=== PATIENT | male | born 1995 | race Caucasian/White ===

== ENCOUNTER 2018-09-09 16:06 | Emergency (ER) | payer OTHER ==
[~2018-09-09] VITALS: Ht 182.9 cm; Wt 81.2 kg
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
--- NOTE | 2018-09-09 16:48 | RAD ---
EXAM: 1. WRIST 3V RIGHT, 2. HAND RIGHT 3V. HISTORY: Right hand/wrist pain after injury. COMPARISON: None. FINDINGS: There is a transverse fracture of the fourth metacarpal diaphysis with 30 degrees volar and radial angulation of the distal fracture fragment. There is also a comminuted, intra-articular fracture of the base of the fifth metacarpal. There is 7 mm dorsal subluxation of the fifth carpometacarpal joint. There are no fractures or malalignment within the wrist. IMPRESSION: 1. Comminuted intra-articular fracture of the fifth metacarpal base with 7 mm dorsal subluxation of the fifth carpometacarpal joint. 2. 30 degrees volar and radial angulation at a fourth metacarpal diaphyseal fracture. Electronically signed by: Mona Jimenez MD (09/09/2018 4:45 PM) [facility]
[2018-09-09] MEDS ORDERED: KETOROLAC 15 MG/ML VIAL. IM ONE (17:00)
[2018-09-09] MEDS ORDERED: TRAM50TA PO (17:43)
[2018-09-09 17:47] VITALS: BP 125/81
== END 2018-09-09 17:47 | disposition home or self-care (01) ==
LOC: ER 16:06
DX: S62.316A Displaced fracture of base of fifth metacarpal bone, right hand, initial encounter for closed fracture (principal); F17.210 Nicotine dependence, cigarettes, uncomplicated; F10.20 Alcohol dependence, uncomplicated; Y90.9 Presence of alcohol in blood, level not specified; W22.8XXA Striking against or struck by other objects, initial encounter; Y93.89 Activity, other specified; Y92.89 Other specified places as the place of occurrence of the external cause; Y99.8 Other external cause status
CPT/HCPCS: 29125; 73110; 73130; 96372; 99284; J1885

== ENCOUNTER 2019-02-18 18:19 | Emergency (ER) | payer OTHER ==
[~2019-02-18] VITALS: Ht 182.9 cm; Wt 83.9 kg
[~2019-02-18 18:19] MED LIST: TRAM50TA PO
[2019-02-18 18:30] VITALS: BP 128/79
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
[2019-02-18] MEDS ORDERED: MELO7.5T29 PO (19:26)
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
== END 2019-02-18 19:32 | disposition home or self-care (01) ==
LOC: ER 18:19
DX: S69.91XA Unspecified injury of right wrist, hand and finger(s), initial encounter (principal); Z77.21 Contact with and (suspected) exposure to potentially hazardous body fluids; F17.210 Nicotine dependence, cigarettes, uncomplicated; F10.20 Alcohol dependence, uncomplicated; Y90.9 Presence of alcohol in blood, level not specified; X50.9XXA Other and unspecified overexertion or strenuous movements or postures, initial encounter; Y93.89 Activity, other specified; Y92.89 Other specified places as the place of occurrence of the external cause; Y99.8 Other external cause status
CPT/HCPCS: 29125; 73130; 86703; 86705; 86709; 86803; 87340; 99285-25

== ENCOUNTER 2019-06-20 11:19 | Emergency (ER) | payer OTHER ==
[~2019-06-20] VITALS: Ht 182.9 cm; Wt 87.4 kg
[~2019-06-20 11:19] MED LIST changes: +MELO7.5T29 PO
[2019-06-20 11:28] VITALS: BP 125/74
[2019-06-20] MEDS ORDERED: NYST15CR2 TP (11:46)
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
== END 2019-06-20 11:50 | disposition home or self-care (01) ==
LOC: ER 11:19
DX: L30.9 Dermatitis, unspecified (principal); F17.210 Nicotine dependence, cigarettes, uncomplicated
CPT/HCPCS: 99283

== ENCOUNTER 2019-10-22 14:44 | Emergency (ER) | payer OTHER ==
[~2019-10-22] VITALS: Ht 182.9 cm; Wt 87.4 kg
[~2019-10-22 14:44] MED LIST changes: +NYST15CR2 TP
[2019-10-22 15:06] VITALS: BP 139/88
[2019-10-22] MEDS ORDERED: DEXAMETHASONE 4 MG TABLET PO ONE (15:30)
[2019-10-22] MEDS ORDERED: LIDO700A21 TP (15:30)
[2019-10-22] MEDS ORDERED: PRED20TA PO (15:30)
[2019-10-22] MEDS ORDERED: ORPH-16 PO (15:30)
[2019-10-22] MEDS ORDERED: KETOROLAC 30 MG/ML VIAL. IM ONE (15:30)
--- NOTE | 2019-10-22 15:31 | PHYS DOC ---
Past History Past Medical History: No Pertinent History Past Surgical History: No Surgical History Smoking: Cigarettes Additional Smoking Information: Dips Alcohol Use: Occasionally Drug Use: None General Adult EDM: Chief Complaint: BACK PAIN OR INJURY HPI: HPI: Patient is a [age] year old [sex] who presents with [] Review of Systems: Review of Systems: Constitutional: Denies fever or chills Eyes: Denies change in visual acuity HENT: Denies nasal congestion or sore throat Respiratory: Denies cough or shortness of breath Cardiovascular: Denies chest pain or edema GI: Denies abdominal pain, nausea, vomiting, bloody stools or diarrhea : Denies dysuria Musculoskeletal: Denies back pain or joint pain Integument: Denies rash Neurologic: Denies headache, focal weakness or sensory changes Endocrine: Denies polyuria or polydipsia Lymphatic: Denies swollen glands Psychiatric: Denies depression or anxiety Heart Score: Risk Factors: Risk Factors: DM, Current or recent (<one month) smoker, HTN, HLP, family history of CAD, obesity. Risk Scores: Score 0 - 3: 2.5% MACE over next 6 weeks - Discharge Home Score 4 - 6: 20.3% MACE over next 6 weeks - Admit for Clinical Observation Score 7 - 10: 72.7% MACE over next 6 weeks - Early Invasive Strategies Allergies: Allergies: Allergies Coded Allergies Type Severity Reaction Last Updated Verified No Known Drug Allergies 09/09/18 No Physical Exam: PE: Constitutional: Well developed, well nourished, no acute distress, non-toxic appearance. [] HENT: Normocephalic, atraumatic, bilateral external ears normal, oropharynx moist, no oral exudates, nose normal. [] Eyes: PERRLA, EOMI, conjunctiva normal, no discharge. [] Neck: Normal range of motion, no tenderness, supple, no stridor. [] Cardiovascular:Heart rate regular rhythm, no murmur [] Lungs & Thorax: Bilateral breath sounds clear to auscultation [] Abdomen: Bowel sounds normal, soft, no tenderness, no masses, no pulsatile marysol s. [] Skin: Warm, dry, no erythema, no rash. [] Back: No tenderness, no CVA tenderness. [] Extremities: No tenderness, no cyanosis, no clubbing, ROM intact, no edema. [] Neurologic: Alert and oriented X 3, normal motor function, normal sensory function, no focal deficits noted. [] Psychologic: Affect normal, judgement normal, mood normal. [] Current Patient Data: Vital Signs: Vital Signs Date Time Temp Pulse Resp B/P (MAP) Pulse Ox O2 Delivery O2 Flow Rate FiO2 10/22/19 15:06 98.0 71 14 139/88 (105) 98 Room Air EKG: EKG: [] Radiology/Procedures: Radiology/Procedures: [] Course & Med Decision Making: Course & Med Decision Making Pertinent Labs and Imaging studies reviewed. (See chart for details) [] Dragon Disclaimer: DragDasher Disclaimer: This electronic medical record was generated, in whole or in part, using a voice recognition dictation system. Departure Departure: Impression: Primary Impression: Back pain Qualified Codes: M54.42 - Lumbago with sciatica, left side Additional Impression: Sciatica Qualified Codes: M54.32 - Sciatica, left side Disposition: HOME/RESIDENCE PRIOR TO ADM Condition: STABLE Referrals: ELIZABETH SHAW PA-C (PCP) Patient Instructions: Back Pain, Adult, [id number], Sciatica, [id number] Additional Instructions: ICE area 20 min on then leave off for next 20 min. Repeat several times daily for next few days. May also use over the counter Ibuprofen 600mg (3 over the counter tabs) three times daily and Tylenol 325-500mg four times daily as needed for pain. Call Dr. Richard Guaman (pain management) Address: [address] [place] [address] Scripts Lidocaine (Lidocaine PATCH ) 1 Each Adh..patch 1 EACH TP DAILY for FOR LOCAL PAIN, #10 PATCH REMOVE AFTER 12 HOURS BEFORE APPLICATION OF NEW PATCH Prov: MOIZ ARZOLA DO 10/22/19 Orphenadrine Citrate (ORPHENADRINE CITRATE) 100 Mg Tablet.er 1 TAB PO BID PRN for MUSCLE PAIN, #14 TAB 0 Refills Prov: MOIZ ARZOLA DO 10/22/19 Prednisone (PREDNISONE) 20 Mg Tablet 2 TAB PO DAILY for Back pain, #8 TAB Start this prescription tomorrow, Wednesday10/23/19 Prov: MOIZ ARZOLA DO 10/22/19 Justification of Admission: Justification of Admission: Justification of Admission Dx: N/A MOIZ ARZOLA DO Oct 22, 2019 15:31
[2019-10-22] MEDS ORDERED: LIDOCAINE (700MG/PATCH) PATCH. TD ONE (15:33)
== END 2019-10-22 15:46 | disposition home or self-care (01) ==
LOC: ER 14:44
DX: M54.42 Lumbago with sciatica, left side (principal); M25.562 Pain in left knee; F17.210 Nicotine dependence, cigarettes, uncomplicated
CPT/HCPCS: 96372; 99283; J1885; J8540

== ENCOUNTER 2020-04-11 01:10 | Emergency (ER) | payer OTHER ==
[~2020-04-11] VITALS: Ht 182.9 cm; Wt 95.0 kg
[~2020-04-11 01:10] MED LIST changes: +LIDO700A21 TP; +ORPH-16 PO; +PRED20TA PO
--- NOTE | 2020-04-11 01:16 | PHYS DOC ---
Past History Past Medical History: No Pertinent History Past Surgical History: No Surgical History Smoking: Chew Alcohol Use: Occasionally Drug Use: None General Adult HPI: HPI: ".. I got a really sore throat.. and I vomited... and now I am running a fever again... may be it is strep throat.. I do get that... I did get over a bad case of COVID in Jan... I feel like it... ... Maybe I got it again.. 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 Patient denies any recent travel received deployments. Has been exposed to inmates who have Covid at the detention. Denies any history immunosuppression. Patient does frequently get strep throat infections this time a year. Patient denies any intake of bad food. Review of Systems: Review of Systems: Constitutional: Complains of fever or chills Eyes: Denies change in visual acuity HENT: Complains of sore throat Respiratory: Complains of nonproductive cough Cardiovascular: Denies chest pain or edema GI: Complains of abdominal pain, nausea, vomiting,. Denies bloody stools or diarrhea : Denies dysuria Musculoskeletal: Complains of generalized myalgia and arthralgia Integument: Denies rash Neurologic: Denies headache, focal weakness or sensory changes Endocrine: Denies polyuria or polydipsia Lymphatic: Denies swollen glands Psychiatric: Denies depression or anxiety Family History: Family History: Noncontributory to presentation Current Medications: Current Meds: See nursing for home meds Allergies: Allergies: Allergies Coded Allergies Type Severity Reaction Last Updated Verified No Known Drug Allergies 09/09/18 No Physical Exam: PE: Constitutional: Well developed, well nourished, moderate acute distress, non- toxic appearance. [] HENT: Normocephalic, atraumatic, bilateral external ears normal, oropharynx moist, postnasal drainage, erythema pharynx, no oral exudates, nose swollen turbinates and clear rhinorrhea Eyes: PERRLA, EOMI, conjunctiva normal, no discharge. [] Neck: Normal range of motion, no tenderness, supple, no stridor. Mild adenopathy anterior chain of her neck. Cardiovascular: Tachycardia heart rate regular rhythm, no murmur [] monitor shows a sinus rhythm Lungs & Thorax: Bilateral breath sounds equal apex with few scattered wheezes on auscultation [] Abdomen: Bowel sounds hyperactive, soft, gastric tenderness, no masses, no pulsatile masses. [] Rebound to right upper quadrant and epigastric area. Skin: Warm, dry, no erythema, no rash. [] Back: Generalized myalgia and arthralgia Extremities: No tenderness, no cyanosis, no clubbing, ROM intact, no edema. No cording appreciated. No psoas sign. Neurologic: Alert and oriented X 3, normal motor function, normal sensory function, no focal deficits noted. [] Psychologic: Affect anxious, judgement normal, mood normal. [] EKG: EKG: My interpretation EKG shows a sinus rhythm at 86 bpm. No findings acute morphology. [] Radiology/Procedures: Radiology/Procedures: [] Heart Score: Risk Factors: Risk Factors: DM, Current or recent (<one month) smoker, HTN, HLP, family history of CAD, obesity. Risk Scores: Score 0 - 3: 2.5% MACE over next 6 weeks - Discharge Home Score 4 - 6: 20.3% MACE over next 6 weeks - Admit for Clinical Observation Score 7 - 10: 72.7% MACE over next 6 weeks - Early Invasive Strategies Course & Med Decision Making: Course & Med Decision Making Pertinent Labs and Imaging studies reviewed. (See chart for details) Patient gargle Listerine 4 times a day. Take Tylenol and ibuprofen for pain. Patient may take Zofran for active nausea and vomiting. Push clear fluids. For marked discomfort may take Vicoprofen. Would self isolate. Consider getting rapid Covid testing at [facility] since it is available there. Return if any c oncerns. Would for the next 24 hours to maintain a clear fluid diet with no solids or milk products to allow bowel rest. There is always a possibility of reinfection with Covid. Impression: 1. Fever 2. Pharyngitis 3. Covid infection- 01/22 4. Gastroenteritis [] Dragon Disclaimer: Dragon Disclaimer: This electronic medical record was generated, in whole or in part, using a voice recognition dictation system. Departure Departure: Referrals: PCP,UNKNOWN (PCP) Scripts Ibuprofen (IBUPROFEN) 400 Mg Tablet 400 MG PO QIDPRN PRN for fever, #120 TAB Prov: CHRIS JONES MD 04/11/20 Acetaminophen (ACETAMINOPHEN) 500 Mg Tablet 1000 MG PO QIDPRN for fever or pain for 90 Days, TAB Prov: CHRIS JONES MD 04/11/20 Ondansetron Hcl (ZOFRAN) 4 Mg Tablet 8 MG PO QIDPRN PRN for NAUSEA/VOMITING, #30 TAB Prov: CHRIS JONES MD 04/11/20 Hydrocodone/Ibuprofen (HYDROCODONE-IBUPROFEN 7.5-200 ) 1 Each Tablet 1 TAB PO PRN Q6HRS PRN for PAIN, #30 TAB 0 Refills Prov: CHRIS JONES MD 04/11/20 Dragon Disclaimer This chart was dictated in whole or in part using Voice Recognition software in a busy, high-work load, and often noisy Emergency Department environment. It may contain unintended and wholly unrecognized errors or omissions. Dragon Disclaimer This chart was dictated in whole or in part using Voice Recognition software in a busy, high-work load, and often noisy Emergency Department environment. It may contain unintended and wholly unrecognized errors or omissions. CHRIS JONES MD Apr 11, 2020 01:16
[2020-04-11] MEDS ORDERED: KETOROLAC 30 MG/ML VIAL. IVP ONE ×3 (01:30→02:00)
[2020-04-11] MEDS ORDERED: ONDANSETRON PF 4 MG/2 ML VIAL. IVP ONE (02:00)
[2020-04-11] MEDS ORDERED: IV RINGERS SOLUTION,LACTATED 1,000 ML IV SCH (02:00)
[2020-04-11] MEDS ORDERED: FAMOTIDINE 20 MG/2 ML VIAL IVP ONE (02:00)
[2020-04-11 02:48] LABS: BASO % 0 % (0-3); EOS # 0.2 x10^3/uL (0.0-0.7); EOS % 1 % (0-3); HEMATOCRIT 46.2 % (39.0-53.0); HEMOGLOBIN 15.5 g/dL (13.0-17.5); LYMPH % 7 % (24-48); MEAN CORPUSCULAR HEMOGLOBIN 29 pg (25-35); MEAN CORPUSCULAR HGB CONC 34 g/dL (31-37); MEAN CORPUSCULAR VOLUME 87 fL (79-100); MONO % 7 % (0-9); NEUT # 12.8 x10^3uL (1.8-7.7); NEUT % 85 % (31-73); PLATELET COUNT 201 x10^3/uL (140-400); RED BLOOD COUNT 5.31 x10^6/uL (4.30-5.70); RED CELL DISTRIBUTION WIDTH 12.4 % (11.5-14.5); WHITE BLOOD COUNT 15.1 x10^3/uL (4.0-11.0)
[2020-04-11 03:04] LABS: CALCIUM 8.9 mg/dL (8.5-10.1); CREATININE 0.9 mg/dL (0.7-1.3); POTASSIUM 3.8 mmol/L (3.5-5.1)
[2020-04-11 03:11] LABS: % BANDS 3 % (0-9); % EOS 2 % (0-5); % LYMPHS 8 % (24-48); % MONOS 3 % (0-10); % SEGS 84 % (35-66); PLT ESTIMATE ADEQUATE (ADEQUATE)
[2020-04-11 03:18] LABS: ALBUMIN 3.9 g/dL (3.4-5.0); DIRECT BILIRUBIN 0.2 mg/dL (0.0-0.2); TOTAL PROTEIN 7.4 g/dL (6.4-8.2)
[2020-04-11 03:24] LABS: INFLUENZA A PATIENT NEGATIVE (NEGATIVE); INFLUENZA B PATIENT NEGATIVE (NEGATIVE)
[2020-04-11] MEDS ORDERED: ONDA4TAB7 PO (04:08)
[2020-04-11] MEDS ORDERED: HYDR-1179 PO (04:08)
[2020-04-11] MEDS ORDERED: ACET500T68 PO (04:08)
[2020-04-11] MEDS ORDERED: IBUP400T18 PO (04:08)
[2020-04-11 04:35] VITALS: BP 117/60
--- NOTE | 2020-04-11 06:20 | EKG ---
[address] [address] Test Date: 2020-04-11 Test Time: 02:19:02 Pat Name: ANETA NOLAND Department: Room: Gender: M Business Team Leader: CAMMIE : 1995 Requested By: CHRIS JONES Order Number: [id number] Reading MD: Measurements Intervals [place] Rate: 86 P: 43 VT: 144 QRS: 60 QRSD: 88 T: 23 QT: 320 QTc: 386 Interpretive Statements SINUS RHYTHM NORMAL ECG RI6.02 No previous ECG available for comparison
--- NOTE | 2020-04-11 08:09 | RAD ---
INDICATION: Reason: n,v, pain, sore throat, fever / Spl. Instructions: / History: COMPARISON: None. IMPRESSION: 3 views of the chest and abdomen obtained. No focal airspace consolidation or pulmonary edema. Cardiac silhouette is unremarkable. Moderate stool within the colon with a grossly nonobstructive bowel gas pattern. Electronically signed by: Haroldo Limon MD (04/11/2020 8:07 AM) [id number]
== END 2020-04-11 04:50 | disposition home or self-care (01) ==
LOC: ER 01:10
DX: K52.9 Noninfective gastroenteritis and colitis, unspecified (principal); Z20.822 Contact with and (suspected) exposure to COVID-19; J02.9 Acute pharyngitis, unspecified; F17.220 Nicotine dependence, chewing tobacco, uncomplicated
CPT/HCPCS: 36415; 74022; 80048; 80076; 82550; 83605; 83690; 84484; 85007; 85025; 85610; 85730; 87040; 87070; 87804; 87880; 93005; 96361; 96374; 96375; 99285; C9803; J1885; J2405; J3490; J7120; U0003